=== PATIENT | female | born 1990 | race Caucasian/White ===

== ENCOUNTER 2016-12-19 17:00 | Inpatient (IN) | payer OTHER ==
[~2016-12-19] VITALS: Ht 166.4 cm; Wt 131.4 kg
--- NOTE | ~2016-12-19 | OR ---
PATIENT'S NAME: BRITT SUTTON [facility] AGE: 26 Y [address] ROOM: [address] [address] LOCATION: [facility] ADMIT DATE: 12/20/2016 OR/Procedure Report DISCHARGE DATE: FAMILY PHYSICIAN: Marek Sneed MD ATTENDING PHYSICIAN: Pola Amos SURGEON: Pola Amos MD ASSISTANT PROFESSOR OF GEOGRAPHY: Maki Madsen PA-C. DATE OF PROCEDURE: PREOPERATIVE DIAGNOSIS: Papillary thyroid carcinoma. POSTOPERATIVE DIAGNOSIS: Papillary thyroid carcinoma. PROCEDURE: Total thyroidectomy. FINDINGS: Recurrent laryngeal nerves were able to be identified and preserved throughout. ESTIMATED BLOOD LOSS: Less than 50 mL. COMPLICATIONS: None. INDICATIONS: The patient is a 26-year-old female who had presented with thyroid nodules. One of these was biopsied, which revealed a papillary carcinoma. We discussed surgical options with her, total thyroidectomy versus a lobectomy. Discussed risks and postoperative course; risks, benefits, and alternatives, which include, but were not limited to, bleeding, infection, hypocalcemia, recurrent laryngeal nerve injury, as well as superior laryngeal nerve injury. She understood the risks and elected to proceed. DESCRIPTION OF PROCEDURE: The patient was taken to the operating room, she placed supine, and given IV sedation. Nerve integrity monitor endotracheal tube was placed. Her neck was then prepped with ChloraPrep and sterilely draped. A collar incision was created, carried through the subcutaneous tissues and down to the platysma using electrocautery. The platysma was incised. Subplatysmal flaps were then created. The strap muscles were then divided in the midline. This incision was carried to the thyroid. The left lobe was attended to first. We were able to mobilize the strap muscles laterally exposing the thyroid. The middle thyroid vein was divided using a Harmonic scalpel. We then turned our attention to the superior pole, we were able to mobilize this. Mobilization occurred right on the thyroid capsule, as to avoid injury to the superior laryngeal nerve. The superior vessels were divided with the Harmonic scalpel. We turned our attention to the inferior pole exposing the inferior vessels, again division was performed with the Harmonic scalpel. We then were able to turn our attention towards the PATIENT'S NAME: BRITT SUTTON [facility] AGE: 26 Y [address] ROOM: [address] [address] LOCATION: [facility] ADMIT DATE: 12/20/2016 OR/Procedure Report DISCHARGE DATE: FAMILY PHYSICIAN: Marek Sneed MD ATTENDING PHYSICIAN: Pola Amos ligament of Dumont, a parathyroid gland was identified, this was able to be preserved. We were able to identify the recurrent laryngeal nerve. This was confirmed with the nerve integrity monitor. We were able to track the nerve and identify this. Then, we were able to divide the ligament of Dumont using the Harmonic scalpel. The left thyroid lobe was then mobilized from the trachea using electrocautery. The thyroid isthmus did extend relatively superior and to the left of midline, this was also dissected from the surrounding tissue. We then turned our attention to the right. The thyroid gland itself was more adherent to the strap muscles in this area making dissection more difficult. Ultimately, we were able to find adequate plane, mobilizing the thyroid gland, and the thyroid was retracted medially exposing the middle thyroid vein, which was ligated with the Harmonic scalpel. We turned our attention superiorly isolating the superior polar vessels on the thyroid gland to avoid the superior laryngeal nerve. These were then divided with the harmonic scalpel. The inferior lobe of the thyroid is where the malignancy was present, this was evident and this did not appear to extend into any surrounding muscle. The inferior polar vessels were isolated and divided with the harmonic scalpel as well. We turned our attention the ligament of Dumont again. We were able to identify a single parathyroid gland and preserve this as well as the recurrent laryngeal nerve. The ligament of Dumont was divided using harmonic scalpel. The rest of the thyroid gland was then mobilized off the trachea and was sent off as specimen. The operative field was then inspected, it appeared hemostatic. Nerve integrity monitor was used to confirm integrity of both recurrent laryngeal nerves. The operative field was further inspected for lymphadenopathy, none was present. After hemostasis was checked and had been obtained, strap muscles were reapproximated with 3-0 silk suture, closure of the platysma with 3-0 Vicryl suture, and skin closure with 4-0 Monocryl suture. Steri-Strips and sterile dressings were placed. The patient was extubated and sent to recovery in good condition. POLA J MD PAVAN AMOS/princess /[id number] d: 12/20/16 2135 t: 12/25/16 1404, OPERATIVE SUMMARY
[2016-12-20] MEDS ORDERED: PROTONIX40 MG PO (06:40)
[2016-12-20] MEDS ORDERED: FEOSOL325 MG PO (06:41)
[2016-12-21] MEDS ORDERED: LEVOTHROID (S200 MCG PO (08:51)
[2016-12-21] MEDS ORDERED: NORCO 5-325 TA1 EACH PO (09:04)
[2016-12-21] MEDS ORDERED: ADVIL200 MG PO (09:05)
== END 2016-12-21 10:10 | disposition disaster alternative care site (69) | DRG 627 ==
LOC: GMSU 12-20 06:13 → GPED 12-20 12:29
PROVIDERS: ADMIT Surgery
PROC: 0GTK0ZZ Resection of Thyroid Gland, Open Approach (ICD-10-PCS; principal; 2016-12-20)
DX: C73 Malignant neoplasm of thyroid gland (principal); K21.9 Gastro-esophageal reflux disease without esophagitis
CPT/HCPCS: J0690; J1100; J2001; J2250; J2405; J3010; J7030; J7120